=== PATIENT | male | born 1980 | race Caucasian/White ===

== ENCOUNTER 2019-04-30 19:41 | Emergency (ER) | payer OTHER ==
[2019-04-30 19:54] VITALS: BP 148/101; PULSE 78; TEMP 99.5; BMI 40.6
[2019-04-30] MEDS ORDERED: KETOROLAC TROMETHAMINE 60 MG/2 ML VIAL IM ONE (20:22)
[2019-04-30] MEDS ORDERED: KETOROLAC TROMETHAMINE 60 MG/2 ML VIAL ONE (20:26)
--- NOTE | 2019-04-30 20:40 | PDOC ---
Documentation entered by Jillian Will SCRIBE, acting as scribe for Carter Rodney MD. Carter Rodney MD: This documentation has been prepared by the Nicolette hicks Brenda, SCRIBE, under my direction and personally reviewed by me in its entirety. I confirm that the documentation accurately reflects all work , treatment, procedures, and medical decision making performed by me. History of Present Illness - General Chief Complaint: Pain, Acute Stated Complaint: LT WRIST History Source: Patient Exam Limitations: No Limitations - History of Present Illness Initial Comments: 04/30/19 20:29 The patient is a 38 year old male, with no significant PMH who presents to the emergency department for 1 day of left hand pain. The Patient reports feeling left hand pain with movement since yesterday. He states taking 3 Tylenols last night and 3 tylenols today, to no avail, prompting his arrival to the ED. 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 The patient denies fever, chills, chest pain, shortness of breath, headache and dizziness. Allergies: As per nursing notes Past medical history: no significant history Past surgical history: no significant history Social history: Pt lives with family and is employed.No reported Family History: no pertinent history Medications: As reviewed General: No fevers or chills, no weakness, no weight loss HEENT: No change in vision. No sore throat,. No ear pain CardioVascular: No chest pain or shortness of breath Respiratory:No cough, or wheezing. Gastrointestinal: no nausea, vomiting, diarrhea or constipation, No rectal bleeding Genitourinary: No dysuria, hematuria, or frequency Musculoskeletal: +Left hand pain. +Slight swelling in left hand. Neurologic: No headache, vertigo, dizziness or loss of consciousness Psychiatric: nor depression Skin: No rashes or easy bruising Endocrine: no increased thirst or abnormal weight change Allergic: no skin or latex allergy All other systems reviewed and normal GENERAL: The patient is awake, alert, and fully oriented, in no acute distress. HEAD: Normal with no signs of trauma. EYES: Pupils equal, round and reactive to light, extraocular movements intact, sclera anicteric, conjunctiva clear. EXTREMITIES:+Left hand tenderness over palpation at the base of the second metacarpal and distal radius area. +Decreased ROM due to pain. +Minimal swelling. NEUROLOGICAL: Normal speech, normal gait. PSYCH: Normal mood, normal affect. SKIN: Warm, Dry, normal turgor, no rashes or lesions noted. 04/30/19 20:38 Assessment and plan: This is a 38-year-old male who comes in complaining of left hand pain. Pain is over the base of the second third and fourth fingers as well as the left wrist. X-ray was negative. Patient given splint, Motrin and discharged. Patient given or to follow-up X-ray left hand and wrist read by me no acute fracture or pathology Past History - Past Medical History Allergies/Adverse Reactions: Allergies Allergy/AdvReac Type Severity Reaction Status Date / Time No Known Drug Allergies Allergy Verified 04/30/19 19:42 peanut Allergy Verified 04/30/19 19:42 Home Medications: Ambulatory Orders NK [No Known Home Medication] 04/30/19 - Suicide/Smoking/Psychosocial Hx Smoking History: Unknown if ever smoked Have you smoked in the past 12 months: No Number of Cigarettes Smoked Daily: 0 Hx Alcohol Use: No Substance Use Type: None *Physical Exam - Vital Signs Last Vital Signs Temp Pulse Resp BP Pulse Ox 99.5 F 78 16 148/101 H 98 04/30/19 19:44 04/30/19 19:44 04/30/19 19:44 04/30/19 19:44 04/30/19 19:44 ED Treatment Course - RADIOLOGY Radiology Studies Ordered: Category Date Time Status WRIST W/HAND-LEFT* [RAD] Stat Radiology 04/30/19 20:11 Taken - Medications Given in the ED: ED Medications Discontinued Medications Generic Name Dose Route Start Last Admin Trade Name Freq PRN Reason Stop Dose Admin Ketorolac Tromethamine 60 mg 04/30/19 20:22 04/30/19 20:29 Toradol Injection - IM 04/30/19 20:23 60 mg ONCE ONE Administration *DC/Admit/Observation/Transfer Diagnosis at time of Disposition: Left wrist pain - Discharge Dispostion Disposition: HOME Condition at time of disposition: Stable Decision to Admit order: No - Referrals Referrals: Brian Castañeda MD [Staff Physician] - - Patient Instructions Additional Instructions: For the pain pain take ibuprofen 4 tablets 3 times a day with food don't take on an empty stomach. Wear the splint as needed for comfort. Follow-up with the orthopedist call them in the morning. Return to the emergency department immediately with ANY new, persistent or worsening symptoms. Continue any medications as previously prescribed by your physician. You should follow up with your primary doctor as soon as possible regarding today's emergency department visit. . Please make sure your doctor reviews the results of your emergency evaluation. Thank you for coming to the Emergency Department today for your care. It was a pleasure to see you today. Please note that your evaluation is INCOMPLETE until you follow-up with your doctor. - Post Discharge Activity
== END 2019-04-30 20:51 | disposition home or self-care (01) ==
LOC: FER 19:41
PROC: 3E0233Z Introduction of Anti-inflammatory into Muscle, Percutaneous Approach (ICD-10-PCS; principal; 2019-04-30)
DX: M25.532 Pain in left wrist (principal)
CPT/HCPCS: 73110-TC-LT-FY; 73130-TC-LT-FY; 99282-25